=== PATIENT | male | born 2000 | race Hispanic/Latino ===

== ENCOUNTER 2023-11-01 21:12 | Emergency (ER) | payer MEDICAID ==
[~2023-11-01] VITALS: Ht 172.7 cm; Wt 59.4 kg
[2023-11-01 21:42] VITALS: BP 133/58; PULSE 106; RESP 20
[2023-11-01] MEDS ORDERED: IBUP-1493 PO (21:59)
[2023-11-01] MEDS ORDERED: SILV20CR11 TP (21:59)
[2023-11-01] MEDS ORDERED: SILVER SULFADIAZINE CREAM 400 GM TP SCH (22:00)
[2023-11-01] MEDS ORDERED: DIPH,PERTUSS(ACELL),TET VAC/PF 0.5 ML VIAL IM ONE (22:00)
[2023-11-01] MEDS ORDERED: SILVER SULFADIAZINE CREAM 50 GM TP ONE (22:15)
[2023-11-01] MEDS: IBUPROFEN 600 MG TABLET PO ONE (22:28)
[2023-11-01] MEDS ORDERED: TETANUS/DIPHTHERIA TOXOID [ADULT] 0.5 ML VIAL IM ONE (22:30)
== END 2023-11-01 22:41 | disposition home or self-care (01) ==
LOC: EDH 21:12
DX: T24.202A Burn of second degree of unspecified site of left lower limb, except ankle and foot, initial encounter (principal); T31.10 Burns involving 10-19% of body surface with 0% to 9% third degree burns; X17.XXXA Contact with hot engines, machinery and tools, initial encounter; Y93.89 Activity, other specified; Y92.89 Other specified places as the place of occurrence of the external cause; Y99.8 Other external cause status
CPT/HCPCS: 90714; 90715